=== PATIENT | male | born 1975 | race Two or more races ===

== ENCOUNTER 2025-08-29 18:04 | Emergency (ER) | payer OTHER ==
[~2025-08-29] VITALS: Ht 175.3 cm; Wt 90.9 kg
[2025-08-29 18:09] VITALS: BP 149/84; PULSE 76; RESP 18; TEMP 98; O2SAT 99
[2025-08-29] MEDS ORDERED: NAPR-1196 PO (19:16)
[2025-08-29] MEDS ORDERED: DICL100G60 TP (19:16)
[2025-08-29] MEDS: IBUPROFEN 600 MG TABLET PO ONE (19:42)
[2025-08-29] MEDS: LIDOCAINE 5% TRANSDERMAL PATCH TD ONE (19:42)
== END 2025-08-29 19:44 | disposition home or self-care (01) ==
LOC: EMS 18:04
DX: M75.51 Bursitis of right shoulder (principal); M75.101 Unspecified rotator cuff tear or rupture of right shoulder, not specified as traumatic
CPT/HCPCS: 99283